=== PATIENT | female | born 1960 | race Caucasian/White ===

== ENCOUNTER 2024-09-27 15:15 | Emergency (ER) | payer BC ==
[~2024-09-27] VITALS: Ht 157.5 cm; Wt 127.0 kg
[2024-09-27 15:15] VITALS: PULSE 52; RESP 18; TEMP 98.2; O2SAT 97
[2024-09-27] MEDS ORDERED: [UNRECOGNIZED DRUG - OTHER] (16:45)
[2024-09-27] MEDS: INSULIN REGULAR, HUMAN 100 UNIT/1 ML SQ ONE (18:45)
== END 2024-09-27 18:48 | disposition home or self-care (01) ==
LOC: FSED 15:21
DX: M79.605 Pain in left leg (principal); I89.0 Lymphedema, not elsewhere classified; E11.65 Type 2 diabetes mellitus with hyperglycemia; E11.40 Type 2 diabetes mellitus with diabetic neuropathy, unspecified; E78.5 Hyperlipidemia, unspecified
CPT/HCPCS: 80053; 85025; 85379; 93971; 99284